=== PATIENT | male | born 1995 | race African-American/Black ===

== ENCOUNTER 2019-09-21 01:33 | Emergency (ER) | payer SELFPAY ==
[~2019-09-21] VITALS: Ht 167.6 cm; Wt 64.0 kg
[2019-09-21 03:45] LABS: CHLORIDE 105 mEq/L (98-107)
[2019-09-21 03:49] LABS: ETHANOL BLOOD < 10 mg/dL
[2019-09-21 03:53] LABS: BASOPHILS % 1.2 % (0.0-2.0); EOSINOPHILS % 1.2 % (0.0-5.0); HEMATOCRIT. 37.6 % (42.0-52.0); HEMOGLOBIN. 12.4 g/dL (14.0-18.0); LYMPHOCYTES % 23.9 % (20.0-50.0); MEAN CORPUSCULAR HEMOGLOBIN 27.7 pg (28.0-32.0); MEAN CORPUSCULAR VOLUME 83.9 fL (80.0-94.0); MEAN PLATELET VOLUME 8.5 fl (7.4-10.4); MONOCYTES % 11.2 % (2.0-8.0); NEUTROPHILS % 62.5 % (40.0-76.0); PLATELET 237 x1000/uL (130-400); RED BLOOD CELL COUNT 4.49 mill/uL (4.7-6.1); RED CELL DISTRIBUTION WIDTH 13.5 % (11.6-14.6)
[2019-09-21] MEDS ORDERED: DEXTROSE 50% WATER 50ML SYRINGE IV SCH (04:30)
[2019-09-21 04:33] LABS: CLARITY URINE CLEAR (CLEAR); COLOR URINE DARK YELLOW (YELLOW); KETONES URINE 1+ (NEGATIVE); LEUKOCYTE ESTERASE URINE NEGATIVE (NEGATIVE); NITRITE URINE NEGATIVE (NEGATIVE); OCCULT BLOOD URINE NEGATIVE (NEGATIVE); PH URINE 5.5 (4.5-8.0); PROTEIN URINE 2+ (NEGATIVE); SPECIFIC GRAVITY URINE 1.031 (1.005-1.030)
[2019-09-21 04:38] LABS: *AMPHETAMINES SCREEN URINE PRESUMTIVE POSITIVE (NEGATIVE); *BARBITURATES SCREEN URINE NEGATIVE (NEGATIVE); *BENZODIAZEPINES SCREEN URINE NEGATIVE (NEGATIVE); *COCAINE SCREEN URINE NEGATIVE (NEGATIVE); METHADONE URINE SCREEN NEGATIVE (NEGATIVE); OPIATES URINE SCREEN NEGATIVE (NEGATIVE)
[2019-09-21 04:39] LABS: CANNABINOID URINE SCREEN NEGATIVE (NEGATIVE); PHENCYCLIDINE URINE SCREEN NEGATIVE (NEGATIVE)
[2019-09-21] MEDS ORDERED: LORAZEPAM 2MG/ML CPJ IV ONE (06:45)
[2019-09-21 13:55] VITALS: BP 134/75
== END 2019-09-21 13:57 | disposition home or self-care (01) ==
LOC: ER 01:33
DX: F23 Brief psychotic disorder (principal); T43.621A Poisoning by amphetamines, accidental (unintentional), initial encounter; Y92.9 Unspecified place or not applicable; E16.2 Hypoglycemia, unspecified; F19.10 Other psychoactive substance abuse, uncomplicated
CPT/HCPCS: 36415; 80053; 80305; 80320; 81003; 85025; 96374; 96375; 99285; J2060; G0480